=== PATIENT | female | born 1940 ===

== ENCOUNTER 2017-07-11 09:58 | Outpatient (CLI) | payer OTHER ==
[~2017-07-11 09:58] MED LIST: AMBIEN10 MG PO; CIPRO750 MG PO; Colace 100MG PO; GABAPENTIN100 MG; NEURONTIN PO; PERCOCET 5/3251 TAB PO; SYNTHROID50 MCG
== END 2017-07-11 10:03 | disposition home or self-care (01) ==
LOC: LAB 09:58
DX: E03.8 Other specified hypothyroidism (principal); E78.2 Mixed hyperlipidemia; M83.8 Other adult osteomalacia

== ENCOUNTER → 2017-09-04 13:14 | Outpatient (CLI) | payer OTHER | END | disposition home or self-care (01) | LOC: LAB 13:14 | DX: J44.1 Chronic obstructive pulmonary disease with (acute) exacerbation (principal); D72.1 Eosinophilia ==

== ENCOUNTER 2017-10-23 14:14 | Outpatient (CLI) | payer OTHER | END 2017-10-23 14:28 | disposition home or self-care (01) | LOC: NUCLEAR 14:14 | DX: I10 Essential (primary) hypertension (principal); I20.1 Angina pectoris with documented spasm ==

== ENCOUNTER 2017-11-05 13:08 | Outpatient (CLI) | payer OTHER | END 2017-11-05 15:00 | disposition home or self-care (01) | LOC: TOM 13:08 | DX: J84.112 Idiopathic pulmonary fibrosis (principal) ==

== ENCOUNTER → 2018-02-03 11:35 | Outpatient (CLI) | payer OTHER | END | disposition home or self-care (01) | LOC: LAB 11:35 | DX: E78.2 Mixed hyperlipidemia (principal); E03.8 Other specified hypothyroidism; E73.8 Other lactose intolerance; N39.0 Urinary tract infection, site not specified; E11.9 Type 2 diabetes mellitus without complications ==

== ENCOUNTER 2018-04-04 07:31 | Outpatient (CLI) | payer OTHER | END 2018-04-04 07:38 | disposition home or self-care (01) | LOC: LAB 07:31 | DX: I11.9 Hypertensive heart disease without heart failure (principal); E11.9 Type 2 diabetes mellitus without complications; E78.2 Mixed hyperlipidemia; E03.8 Other specified hypothyroidism; N39.0 Urinary tract infection, site not specified; E55.9 Vitamin D deficiency, unspecified; E56.8 Deficiency of other vitamins ==

== ENCOUNTER 2018-08-12 10:02 | Outpatient (CLI) | payer OTHER | END 2018-08-12 13:58 | disposition home or self-care (01) | LOC: LAB 10:02 | DX: M83.8 Other adult osteomalacia (principal); E13.9 Other specified diabetes mellitus without complications; M81.0 Age-related osteoporosis without current pathological fracture; E03.8 Other specified hypothyroidism; E04.1 Nontoxic single thyroid nodule; E78.2 Mixed hyperlipidemia ==

== ENCOUNTER 2019-05-21 09:54 | Inpatient (IN) | payer OTHER ==
[~2019-05-21] VITALS: Ht 154.9 cm; Wt 72.6 kg
--- NOTE | 2019-05-21 10:08 | NUR ---
PTE REFIERE DIFICULTAD PARA RESPIRAR SE SUZANNE S/V Y SE UBICA EN AREA DE ASMA UNIT
--- NOTE | 2019-05-21 10:21 | NUR ---
PTE EVALUADA POR EL QUIENN ORDENA TRATAMIENTO LA CUAL SE EJECUTA SE ACOMODA EN CAMA CON BARABDAS ELEVADA Y SE CONECTA MONITOR CARDIACO.SE NOTIFICA A TERAPIA RESPIRATORIA Y SE LE REALIZA CHEST PORTABLE. SE OBSERVA POR CAMBIOS
--- NOTE | 2019-05-21 16:15 | NUR ---
SE RECIBE PACIENTE ALERTA Y ORIENTADA EN CAMA CON BARRANDAS ELEVADAS. PACINETE CONECTADA A MONITOR CARDIACO Y OXIMETRIA DE PULSO. PACIENTE CON VENTURY MASCK AL 35%. PACIENTE CON VENOPUNICON PATENTE ANKIT DE EDEMA Y ERRITEMA . PACIENTE EN ESPERA DEL DR. ROSA PINEDA. SE JENN A PACIENTE EN CAMA BAJO OBSERVACION POR CAMBIOS EN THOMPSON CONDICION.
[2019-05-22] MEDS ORDERED: GABAPENTIN800 MG PO (09:45)
[2019-05-24] MEDS ORDERED: MEDROLPACK PO (15:55)
[2019-05-24] MEDS ORDERED: SYMBICORT 16010.2 GM IH (15:58)
== END 2019-05-24 16:08 | disposition home or self-care (01) | DRG 191 ==
LOC: ER 09:54 → SURH 19:02
PROVIDERS: ADMIT Internal Medicine
PROC: BB24YZZ Computerized Tomography (CT Scan) of Bilateral Lungs using Other Contrast (ICD-10-PCS; principal; 2019-05-21)
PROC: B246ZZZ Ultrasonography of Right and Left Heart (ICD-10-PCS; 2019-05-21)
PROC: 3E0F7GC Introduction of Other Therapeutic Substance into Respiratory Tract, Via Natural or Artificial Opening (ICD-10-PCS; 2019-05-21)
PROC: 4A033R1 Measurement of Arterial Saturation, Peripheral, Percutaneous Approach (ICD-10-PCS; 2019-05-21)
DX: J44.1 Chronic obstructive pulmonary disease with (acute) exacerbation (principal); J45.41 Moderate persistent asthma with (acute) exacerbation; I10 Essential (primary) hypertension; I35.8 Other nonrheumatic aortic valve disorders; R09.02 Hypoxemia; E03.8 Other specified hypothyroidism

== ENCOUNTER 2019-07-15 09:36 | Inpatient (IN) | payer OTHER ==
[~2019-07-15] VITALS: Ht 152.4 cm; Wt 59.0 kg
[~2019-07-15 09:36] MED LIST changes: +GABAPENTIN800 MG PO; +MEDROLPACK PO; +SYMBICORT 16010.2 GM IH
--- NOTE | 2019-07-15 09:59 | NUR ---
SE RECIBE PACIENTE EN AMBULANCIA REFIERE DIFICULTAD RESPIRATORIA SE SUZANNE S/V Y SE REALIZA EKG EL CUAL SE PRESENTA A DIYA VICKIE. SE UBICA PACNYE EN AREA DE CRITICAL CARE CAMA #1
--- NOTE | 2019-07-15 10:00 | NUR ---
SE RECIBE PACIENTE EN AMBULACIA , SE OBSERVA CON DISTRESS RESPIRATORIO , CON C/N 3L/MIN , PARAMEDICO SREFIERE PACINETE SE ENCONTRABA EN EL LOBBY CON DIFICULTAD RESPIRATORIA, PACIENTE SE ACOMODA EN CAMA COENCTADA A MONITOR , DIYA. VICKIE EVALUA LA PACIENTE Y SE LE NOTIIFCA A [place] ABGS , Y TERAPIAS RESPIRATORIAS, SE TOMAMUESTARS DE SNAGRE Y SE CANALIZA CON DOS ANGIO #18 EN BRAZO SAMIR PATENTE ANKIT DE EDEMA. 1030AM POR ORDEN DE LA DIYA. VICKIE SE LE COLOCA EL BIPAP POR [place] CON PARAMETROS IPAP12 EPAP 6 FIO2 50% RR18 SE MANTIENE EN OBSERVACION EN CONTINUO MONITOR CARDIACO Y C/N 3 L/MIN
[2019-07-31] MEDS ORDERED: XOPENEX CO1.25 MG/0. IH (14:38)
[2019-07-31] MEDS ORDERED: CARDIZEM CD120 MG PO (14:39)
[2019-07-31] MEDS ORDERED: CLOTRIMAZOLE10 MG MM (14:40)
[2019-07-31] MEDS ORDERED: LEVOTHYROXINE100 MCG PO (14:40)
[2019-07-31] MEDS ORDERED: MEDROLPACK PO (15:40)
== END 2019-07-31 17:09 | DRG 208 ==
LOC: ER 09:36 → ICU-2 15:57 → ICU 07-17 03:23 → MEDI 07-27 17:09
PROVIDERS: ADMIT Internal Medicine
PROC: 5A1945Z Respiratory Ventilation, 24-96 Consecutive Hours (ICD-10-PCS; principal; 2019-07-15)
PROC: 0BH17EZ Insertion of Endotracheal Airway into Trachea, Via Natural or Artificial Opening (ICD-10-PCS; 2019-07-15)
PROC: 4A033R1 Measurement of Arterial Saturation, Peripheral, Percutaneous Approach (ICD-10-PCS; 2019-07-15)
PROC: B246ZZZ Ultrasonography of Right and Left Heart (ICD-10-PCS; 2019-07-15)
PROC: 3E0F7GC Introduction of Other Therapeutic Substance into Respiratory Tract, Via Natural or Artificial Opening (ICD-10-PCS; 2019-07-15)
PROC: 0T9B70Z Drainage of Bladder with Drainage Device, Via Natural or Artificial Opening (ICD-10-PCS; 2019-07-15)
PROC: 0DH67UZ Insertion of Feeding Device into Stomach, Via Natural or Artificial Opening (ICD-10-PCS; 2019-07-16)
PROC: 3E0G76Z Introduction of Nutritional Substance into Upper GI, Via Natural or Artificial Opening (ICD-10-PCS; 2019-07-16)
PROC: 4A12X4Z Monitoring of Cardiac Electrical Activity, External Approach (ICD-10-PCS; 2019-07-27)
DX: J96.01 Acute respiratory failure with hypoxia (principal); B37.1 Pulmonary candidiasis; I50.41 Acute combined systolic (congestive) and diastolic (congestive) heart failure; J15.8 Pneumonia due to other specified bacteria; J44.1 Chronic obstructive pulmonary disease with (acute) exacerbation; J45.41 Moderate persistent asthma with (acute) exacerbation; E03.8 Other specified hypothyroidism; I11.0 Hypertensive heart disease with heart failure; I34.0 Nonrheumatic mitral (valve) insufficiency; M51.26 Other intervertebral disc displacement, lumbar region; R31.0 Gross hematuria; M62.89 Other specified disorders of muscle; F43.22 Adjustment disorder with anxiety; Z99.81 Dependence on supplemental oxygen

== ENCOUNTER 2019-08-03 04:51 | Inpatient (IN) | payer OTHER ==
[~2019-08-03] VITALS: Ht 154.9 cm; Wt 70.3 kg
[~2019-08-03 04:51] MED LIST changes: +CARDIZEM CD120 MG PO; +CLOTRIMAZOLE10 MG MM; +LEVOTHYROXINE100 MCG PO; +XOPENEX CO1.25 MG/0. IH
== END 2019-08-15 17:10 | disposition expired | DRG 369 ==
LOC: ER 04:51 → ICU-2 12:55 → MEDI 08-05 13:43 → MEDJ 08-05 15:23 → ICU 08-10 21:26 → MEDJ 08-12 13:54
PROVIDERS: ADMIT Internal Medicine
PROC: 3E0F7GC Introduction of Other Therapeutic Substance into Respiratory Tract, Via Natural or Artificial Opening (ICD-10-PCS; 2019-08-03)
PROC: 4A033R1 Measurement of Arterial Saturation, Peripheral, Percutaneous Approach (ICD-10-PCS; 2019-08-03)
PROC: 4A12X4Z Monitoring of Cardiac Electrical Activity, External Approach (ICD-10-PCS; 2019-08-05)
PROC: 02HV33Z Insertion of Infusion Device into Superior Vena Cava, Percutaneous Approach (ICD-10-PCS; principal; 2019-08-07)
PROC: CB2YYZZ Tomographic (Tomo) Nuclear Medicine Imaging of Respiratory System using Other Radionuclide (ICD-10-PCS; 2019-08-08)
PROC: BW21ZZZ Computerized Tomography (CT Scan) of Abdomen and Pelvis (ICD-10-PCS; 2019-08-10)
PROC: 0DJ08ZZ Inspection of Upper Intestinal Tract, Via Natural or Artificial Opening Endoscopic (ICD-10-PCS; 2019-08-12)
DX: K22.6 Gastro-esophageal laceration-hemorrhage syndrome (principal); N39.0 Urinary tract infection, site not specified; J44.1 Chronic obstructive pulmonary disease with (acute) exacerbation; J98.11 Atelectasis; E03.9 Hypothyroidism, unspecified; F43.20 Adjustment disorder, unspecified; D69.6 Thrombocytopenia, unspecified; B95.2 Enterococcus as the cause of diseases classified elsewhere